=== PATIENT | female | born 1955 | race Caucasian/White ===

== ENCOUNTER → 2016-06-15 | Outpatient (CLI) | payer BC | LOC: COL.RAD 14:13 | DX: M25.551 Pain in right hip (principal) | CPT/HCPCS: J3301 ==

== ENCOUNTER → 2016-11-12 | Outpatient (CLI) | payer BC | LOC: MC.RAD 07:40 | DX: Z12.31 Encounter for screening mammogram for malignant neoplasm of breast (principal) ==

== ENCOUNTER → 2017-12-01 | Outpatient (CLI) | payer BC | LOC: MC.RAD 07:28 | DX: Z12.31 Encounter for screening mammogram for malignant neoplasm of breast (principal); N63.20 Unspecified lump in the left breast, unspecified quadrant ==

== ENCOUNTER → 2018-12-19 | Outpatient (CLI) | payer BC | LOC: MC.RAD 09:08 | DX: Z12.31 Encounter for screening mammogram for malignant neoplasm of breast (principal); N63.24 Unspecified lump in the left breast, lower inner quadrant ==

== ENCOUNTER → 2019-12-21 | Outpatient (CLI) | payer BC | LOC: MC.RAD 07:00 | DX: Z12.31 Encounter for screening mammogram for malignant neoplasm of breast (principal) ==

== ENCOUNTER 2020-03-14 08:39 | Day surgery (SDC) | payer BC ==
[~2020-03-14] VITALS: Ht 160 cm; Wt 59.1 kg
[2020-03-14] VITALS (7 sets, daily range): BP systolic 133–147; BP diastolic 59–75; PULSE 65–82; TEMP 97.3
[2020-03-14 09:38] LABS: BASO % 0.4 % (0.0-2.0); EOS % 0.1 % (0-4.0); GRAN # 5.7 (1.4-6.5); GRAN % 77.9 % (42.2-75.2); HEMATOCRIT 38.6 % (37.0-47.0); HEMOGLOBIN 13.4 g/dl (12.5-16.0); LYMPH % 13.2 % (20.0-51.0); MEAN CELL VOLUME 93 fl (80.0-100.0); MEAN CORPUSCULAR HEMOGLOBIN 32 pg (27.0-31.0); MEAN CORPUSCULAR HGB CONC 35 g/dl (33.0-37.0); MEAN PLATELET VOLUME 11.2 fl (7.4-10.4); MONO # 0.6 (0.1-0.6); MONO % 8.1 % (1.7-9.3); PLATELET COUNT 114 K/mm3 (130-400); RED BLOOD COUNT 4.16 M/mm3 (4.10-5.30)
[2020-03-14] MEDS ORDERED: BARACLUDE0.5 MG PO (09:45)
[2020-03-14] MEDS ORDERED: VEMLIDY25 MG PO (09:46)
[2020-03-14] MEDS ORDERED: RESTASIS MULTI5.5 ML OU (09:46)
[2020-03-14] MEDS ORDERED: ZESTRIL30 MG PO (09:47)
[2020-03-14] MEDS ORDERED: PRINIVIL10 MG PO (09:47)
[2020-03-14] MEDS ORDERED: PRINIVIL20 MG PO (09:47)
[2020-03-14] MEDS ORDERED: ONE-A-DAY ESSE1 EACH PO (09:48)
[2020-03-14] MEDS ORDERED: EPA FISH OIL1 SGL PO (09:48)
[2020-03-14] MEDS ORDERED: VITAMIN D31000 I1 PO (09:48)
[2020-03-14 09:57] LABS: ALBUMIN 4.2 gm/dL (3.5-5.0); BILIRUBIN,TOTAL 0.8 mg/dL (0.0-1.0); C-REACTIVE PROTEIN 0.8 mg/dL (0.0-0.9); CALCIUM 8.8 mg/dL (8.4-10.2); CREATININE, serum 0.97 (0.52-1.25); POTASSIUM 3.7 mmol/L (3.4-5.0); TOTAL PROTEIN 6.7 gm/dL (6.4-8.2)
[2020-03-14 10:04] LABS: COLLECTION METHOD CLEAN CATCH
[2020-03-14 10:18] LABS: PH 7 (5-8); SQUAMOUS EPITHELIAL None Seen /hpf; URINE APPEARANCE Clear; URINE BACTERIA None Seen /hpf; URINE BILIRUBIN Negative (NEGATIVE); URINE BLOOD Negative (NEGATIVE); URINE COLOR Straw; URINE GLUCOSE Negative (NEGATIVE); URINE KETONE Negative (NEGATIVE); URINE LEUKOCYTE ESTERASE Negative (NEGATIVE); URINE NITRATE Negative (NEGATIVE); URINE PROTEIN(semi-quant) Negative (NEGATIVE); URINE RBC 0-2 /hpf; URINE UROBILINOGEN Negative (NEGATIVE)
--- NOTE | 2020-03-14 15:38 | NUR ---
Report received from Ursula [employer].
--- NOTE | 2020-03-14 15:49 | NUR ---
Transfer pt from PACU to [facility] via cart and this RN without complications.
--- NOTE | 2020-03-14 15:50 | NUR ---
Pt arrives at [facility] [facility]. Pt denies pain or nausea. brought to room. Pt requests muffin and juice. Call light within reach. Monitors on and alarms set.
--- NOTE | 2020-03-14 16:40 | NUR ---
Pt taking food and drink well. Pt mentions mild right shoulder pain. This RN explains this as a common result of laparoscopic surgery and how to alleviate it.
[2020-03-14] MEDS ORDERED: DILAUDID 2MG TAB2 MG PO (17:16)
--- NOTE | 2020-03-14 17:50 | NUR ---
Discharge instructions given to patient and . Handed to them are a thank you card, discharge instructions, diagnosis information, a procedural photo, and new Rx instructions. All questions answered to their satisfaction.
--- NOTE | 2020-03-14 18:05 | NUR ---
Pt transferred out of hospital via wheelchair and this RN to waiting private vehicle driven by .
== END 2020-03-14 18:05 | disposition home or self-care (01) ==
LOC: COL.ER 08:39 → SDCO 16:03
PROVIDERS: Family Medicine; Physician Assistant
DX: K35.80 Unspecified acute appendicitis (principal); I10 Essential (primary) hypertension; D69.6 Thrombocytopenia, unspecified; H04.129 Dry eye syndrome of unspecified lacrimal gland; B18.1 Chronic viral hepatitis B without delta-agent; Z85.6 Personal history of leukemia; Z86.19 Personal history of other infectious and parasitic diseases; Z94.81 Bone marrow transplant status; Z88.8 Allergy status to other drugs, medicaments and biological substances; Z79.899 Other long term (current) drug therapy
CPT/HCPCS: J1100; J1170; J1885; J2270; J2405; J2543; J2704; J3010; J7030; J7120; Q9967

== ENCOUNTER → 2020-05-20 | Outpatient (CLI) | payer BC ==
[~2020-05-20] VITALS: Ht 160 cm; Wt 63.5 kg
[~2020-05-20] MED LIST: BARACLUDE0.5 MG PO; DILAUDID 2MG TAB2 MG PO; EPA FISH OIL1 SGL PO; FLONASE NASAL S16 GM; MUCINEX 60600 MG/TA1 PO; ONE-A-DAY ESSE1 EACH PO; PRINIVIL10 MG PO; PRINIVIL20 MG PO; RESTASIS MULTI5.5 ML OU; VEMLIDY25 MG PO; VITAMIN D31000 I1 PO; ZESTRIL30 MG PO
[2020-05-20 15:59] VITALS: BP 144/84; PULSE 83; TEMP 98.8
== END ==
LOC: EUO 15:41
DX: M81.0 Age-related osteoporosis without current pathological fracture (principal)
CPT/HCPCS: J3489

== ENCOUNTER → 2021-01-09 | Outpatient (CLI) | payer BC | LOC: MC.RAD 08:55 | DX: Z12.31 Encounter for screening mammogram for malignant neoplasm of breast (principal) ==

== ENCOUNTER 2021-08-18 09:47 | Outpatient (CLI) | payer BC ==
[~2021-08-18] VITALS: Ht 160 cm; Wt 59.6 kg
[~2021-08-18 09:47] MED LIST changes: -FLONASE NASAL S16 GM; +FLONASE NASAL S16 GM NAS
[2021-08-18 10:28] VITALS: BP 147/88; PULSE 57; TEMP 98.4
[2021-08-18] MEDS ORDERED: ALLEGRA 180MG180 MG PO (10:34)
[2021-08-18] MEDS ORDERED: CITRACAL-D3 ER1 EACH PO (10:35)
== END 2021-08-18 12:40 ==
LOC: EUO 09:47
DX: M81.0 Age-related osteoporosis without current pathological fracture (principal)
CPT/HCPCS: J3489

== ENCOUNTER → 2022-01-14 | Outpatient (CLI) | payer BC ==
[~2022-01-14] MED LIST changes: +ALLEGRA 180MG180 MG PO; +CITRACAL-D3 ER1 EACH PO
== END ==
LOC: MC.RAD 10:45
DX: Z12.31 Encounter for screening mammogram for malignant neoplasm of breast (principal); N63.11 Unspecified lump in the right breast, upper outer quadrant

== ENCOUNTER → 2022-01-21 | Outpatient (CLI) | payer BC | LOC: MC.RAD 07:29 | DX: N60.01 Solitary cyst of right breast (principal) ==

== ENCOUNTER 2023-01-25 13:41 | Outpatient (CLI) | payer MEDICARE, BC ==
[~2023-01-25] VITALS: Ht 160 cm; Wt 59.6 kg
[2023-01-25 14:46] VITALS: BP 181/100; PULSE 66; TEMP 98.6
== END 2023-01-25 14:58 ==
LOC: EUO 13:41
DX: M81.0 Age-related osteoporosis without current pathological fracture (principal)
CPT/HCPCS: J3489

== ENCOUNTER → 2024-02-23 | Outpatient (CLI) | payer MEDICARE, BC | LOC: MC.RAD 07:23 | DX: Z12.31 Encounter for screening mammogram for malignant neoplasm of breast (principal) ==